=== PATIENT | female | born 1975 | race Caucasian/White ===

== ENCOUNTER → 2018-12-06 | Outpatient (CLI) | payer OTHER ==
[~2018-12-06] MED LIST: ADVIL 200MG TA200 MG PO; CARAFATE1 GM PO; CITALOPRAM10 MG PO; CITALOPRAM40 MG PO; CLINDAMYCIN300 MG PO; MVI; PANTOPRAZOLE40 MG PO; PERCOCET 325 MG1 TA2 PO; PRILOSEC 20MG20 MG PO; SEPTRA DS 8001 TAB PO; SEPTRA SUS200/5-40/5 PO; ULTRAM 50MG TAB50 MG PO; VICODIN 5/5001 UDTAB PO; [UNRECOGNIZED DRUG - REMARK]
== END ==
LOC: MC.RAD 15:45
DX: Z12.31 Encounter for screening mammogram for malignant neoplasm of breast (principal)

== ENCOUNTER → 2019-12-08 | Outpatient (CLI) | payer OTHER | LOC: MC.RAD 14:30 | DX: Z12.31 Encounter for screening mammogram for malignant neoplasm of breast (principal); N63.20 Unspecified lump in the left breast, unspecified quadrant ==

== ENCOUNTER → 2019-12-27 | Outpatient (CLI) | payer OTHER | LOC: MC.RAD 08:12 | DX: N63.22 Unspecified lump in the left breast, upper inner quadrant (principal) ==

== ENCOUNTER 2021-02-13 06:00 | Day surgery (SDC) | payer OTHER ==
[~2021-02-13] VITALS: Ht 160 cm; Wt 87.0 kg
[2021-02-13] MEDS ORDERED: GLUCOPHAGE500 MG/TAB PO (07:08)
[2021-02-13] MEDS ORDERED: CYMBALTA 60MG60 MG PO (07:08)
[2021-02-13] MEDS ORDERED: B-121000 MCG PO (07:09)
[2021-02-13] MEDS ORDERED: LIPITOR 40MG TA40 MG PO (07:09)
[2021-02-13] MEDS ORDERED: CEFACLOR250 MG PO ×2 (07:10→08:25)
[2021-02-13] MEDS ORDERED: XANAX 0.5MG0.5 MG PO (07:12)
[2021-02-13 07:19] VITALS: BP 111/46; PULSE 76; TEMP 97.8
[2021-02-13 08:51] VITALS: BP 119/79; PULSE 74; TEMP 99
[2021-02-13 09:05] VITALS: BP 135/63; PULSE 73
[2021-02-13 09:20] VITALS: BP 134/77; PULSE 90
[2021-02-13 09:35] VITALS: BP 125/71; PULSE 80
== END 2021-02-13 10:47 | disposition home or self-care (01) ==
LOC: SDCO 06:00
DX: N39.41 Urge incontinence (principal); N30.20 Other chronic cystitis without hematuria; R35.0 Frequency of micturition; M79.7 Fibromyalgia; E78.00 Pure hypercholesterolemia, unspecified; M19.90 Unspecified osteoarthritis, unspecified site; G89.29 Other chronic pain; F41.9 Anxiety disorder, unspecified; F32.9 Major depressive disorder, single episode, unspecified; Z87.440 Personal history of urinary (tract) infections; Z20.822 Contact with and (suspected) exposure to COVID-19; Z90.89 Acquired absence of other organs; Z79.84 Long term (current) use of oral hypoglycemic drugs; Z79.899 Other long term (current) drug therapy
CPT/HCPCS: A4215; J0585; J0690; J1100; J2405; J2704

== ENCOUNTER → 2022-03-18 | Outpatient (CLI) | payer BC, OTHER ==
[~2022-03-18] MED LIST changes: +B-121000 MCG PO; +CEFACLOR250 MG PO; +CYMBALTA 60MG60 MG PO; +GLUCOPHAGE500 MG/TAB PO; +LIPITOR 40MG TA40 MG PO; +XANAX 0.5MG0.5 MG PO
== END ==
LOC: MC.RAD 08:52
DX: Z12.31 Encounter for screening mammogram for malignant neoplasm of breast (principal); N63.10 Unspecified lump in the right breast, unspecified quadrant

== ENCOUNTER → 2022-03-20 | Outpatient (CLI) | payer BC, OTHER | LOC: MC.RAD 12:43 | DX: N63.10 Unspecified lump in the right breast, unspecified quadrant (principal) ==

== ENCOUNTER → 2022-03-31 | Outpatient (CLI) | payer BC, OTHER | LOC: MC.RAD 13:54 | DX: N63.10 Unspecified lump in the right breast, unspecified quadrant (principal) ==